=== PATIENT | female | born 1990 | race Caucasian/White ===

== ENCOUNTER 2017-05-03 18:05 | Emergency (ER) | payer MEDICAID, OTHER ==
--- NOTE | 2017-05-03 19:12 | ER NURSING DOCUMENTATION ---
Nurse's Notes [facility] Name:Marielena Paul Age:26 yrs Sex:Female :1990 Arrival Date:05/03/2017 Time:18:05 Bed3 Private MD:Vesna [facility] Diagnosis:Migraine Headache Presentation: 05/03 18:29 Presenting complaint: Patient states: migraine for the past 2 days, normal migraine la presentation for her. c/o blurry vision and nausea. out of home prescriptions- maxalt and phenergan. Transition of care: Home. 18:29 Acuity: TAVO 3 la 18:29 Method Of Arrival: Private Vehicle la Triage Assessment: 18:33 Headache History: The patient has had previous headaches and this one is similar to ok previous episodes. General: Appears comfortable, Behavior is appropriate for age, cooperative, pleasant, quiet. Pain: Complains of pain in forehead and back of neck Pain currently is 6 out of 10 on a pain scale. Quality of pain is described as throbbing, Pain began 2-3 days ago Alleviated by nothing. Aggravated by increased activity, Also complains of nausea, photophobia. EENT: No deficits noted. Neuro: Level of Consciousness is awake, alert, obeys commands, Oriented to person, place, time, event, Application Support are equal bilaterally Moves all extremities. Speech is normal, Facial symmetry appears normal, Pupils are PERRLA. Cardiovascular: No deficits noted. Respiratory: No deficits noted. GI: Abdomen is flat, non- distended Reports nausea. : No deficits noted. Derm: No deficits noted. Musculoskeletal: No deficits noted. 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 Lamictal Oral 2. Aldactone Oral 3. Metformin Oral - PMHx: PCOS; - PSHx: Tonsillectomy; - Tetanus: < 10 years. - Ebola Screening: : Patient negative for fever greater than or equal to 101.5 degrees Fahrenheit, and additional compatible Ebola Virus Disease symptoms. - Immunization history: Flu Vaccine None. - Social history: Smoking status: Patient states was never smoker of tobacco. Screenin:37 Infectious Disease Risk None. Abuse screen: Denies threats or abuse. Nutritional la screening: No deficits noted. Assessment: 18:37 See Triage Assessment done by same RN. la 18:38 Reassessment: LMP 2 weeks ago, refusing IV.. la 19:08 Reassessment: pt states she would just like prescriptions and go home. refusing PO la medications here. Vital Signs: 18:35 BP 113 / 71 RA Sitting; Pulse 86; Resp 16; Temp 98.7(O); Pulse Ox 94% ; Weight 74.84 la kg; Height 5 ft. 2 in. (157.48 cm); Pain 6/10; 19:08 BP 110 / 72 RA Sitting; Pulse 85; Resp 16; Pulse Ox 94% ; Pain 6/10; la 18:35 Body Mass Index 30.18 (74.84 kg, 157.48 cm) la Brenda Coma Score: 18:35 Eye Response: spontaneous(4). Verbal Response: oriented(5). Motor Response: obeys la commands(6). Total: 15. 19:11 Eye Response: spontaneous(4). Verbal Response: oriented(5). Motor Response: obeys la commands(6). Total: 15. ED Course: 18:07 Patient arrived in ED. ds 18:07 Christiano Carrizales MD is Private Physician. ds 18:07 [facility] is Private Physician. ds 18:09 Glen Munroe MD is Attending Physician. tl1 18:29 Winnie Bunch is Primary Nurse. la 18:31 Triage completed. la 18:37 Valuables Remains with patient Patient has correct armband on for positive la identification. Bed in low position. Call light in reach. Side rails up X 1. Door closed. Noise minimized. Lights dimmed. Pillow given. 19:03 [facility] is Referral Physician. tl1 Administered Medications: No medications were administered Outcome: 19:04 Discharge ordered by . tl1 19:09 Discharged to home ambulatory. la 19:09 Condition: good 19:09 Discharge Assessment: Patient awake, alert and oriented x 3. No cognitive and/or functional deficits noted. Patient verbalized understanding of disposition instructions. 19:09 Discharge instructions given to patient, Instructed on discharge instructions, follow up and referral plans. medication usage, Demonstrated understanding of instructions, medications, Prescriptions given X 3. 19:11 Patient left the ED. la 06 12:26 Discharge F/U Call: Unable to reach: no answer st Signatures: Twombly, Summer, RN RN st Srot, Loal, Reg Reg ds Winnie Bunch Tom, MD MD tl1
--- NOTE | 2017-05-05 19:12 | ER PHYSICIAN DOCUMENTATION ---
Physician Documentation [facility] Name:Marielena Paul Age:26 yrs Sex:Female :1990 Arrival Date:05/03/2017 Time:18:05 Bed3 Private MD:Vesna [facility] ED PhysicianShaneka Glen Disposition: 05/05 07:22 Chart complete. tl1 Disposition: 05/03/17 19:04 Discharged to Home/Self Care. Impression: Migraine Headache. - Condition is Good. - Discharge Instructions: HEADACHE, Migraine (Classical). - Prescriptions for Phenergan 25 mg Oral tablet - take 1 tablet by ORAL route every 4 hours as needed; 20 tablet. Imitrex 20 mg/Actuation Nasal - inhale 1 spray by INTRANASAL route once daily - x 1 dose; if headache returns, the dose may be repeated once after 2 hours, not to exceed a total daily dose of 2 sprays; 1 Inhaler. [place] 7.5- 325 mg Oral - take 1 tablet by ORAL route every 6 hours As needed; 12 tablet. - Medical Reconciliation form form. - Follow up: Vesna [facility]; When: 10 - 14 days; Reason: Recheck today's complaints, Continuance of care. - Problem is new. - Symptoms have improved. HPI: 05/03 18:15 This 26 yrs old Female presents to ER via Private Vehicle with complaints of tl1 Headache. 18:15 The patient complains of pain to the top of head. The patient describes the headache as tl1 aching, a pressure, throbbing, unrelenting. Onset: The symptoms/episode began/occurred gradually, yesterday. Severity of symptoms: At its worst the pain was severe, in the emergency department the pain is unchanged. She has had many prior migraines very similar to this. She ran out of her usual migraine medications, and she is here requesting phenergan and zofran so she can get to the pharmacy before they close. She would not like to stay for medications in the ED. She denies stiff neck, fever, or any focal neurological symptoms.. 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 Lamictal Oral 2. Aldactone Oral 3. Metformin Oral - PMHx: PCOS; - PSHx: Tonsillectomy; - Tetanus: < 10 years. - Ebola Screening: : Patient negative for fever greater than or equal to 101.5 degrees Fahrenheit, and additional compatible Ebola Virus Disease symptoms. - Immunization history: Flu Vaccine None. - Social history: Smoking status: Patient states was never smoker of tobacco. ROS: 19:00 Neuro: Positive for headache, Negative for altered mental status, dizziness, gait tl1 disturbance, weakness. 19:00 All other systems are negative. Exam: 19:00 Constitutional: The patient appears alert, awake, non-toxic, well developed, well tl1 hydrated, well groomed, well nourished, uncomfortable. 19:00 Head/face: Exam is negative for acute changes. 19:00 Eyes: Periorbital structures: appear normal, Pupils: equal, round, and reactive to light and accomodation, Extraocular movements: intact throughout, Conjunctiva: normal. 19:00 ENT: Exam is negative for acute changes. 19:00 Neck: ROM/movement: is normal, is supple. 19:00 Cardiovascular: Rate: normal. 19:00 Respiratory: Respirations: normal, Breath sounds: are normal. 19:00 Abdomen/GI: Inspection: 19:00 Abdomen/GI: Palpation: abdomen is soft and non-tender. 19:00 Neuro: Orientation: is normal, Mentation: is normal, Memory: is normal, Cranial nerves: grossly normal, Motor: moves all fours, Gait: is steady, at a normal pace, without difficulty, appropriate for age. 19:00 Psych: Behavior/mood is pleasant, cooperative, Affect is calm, Oriented to person, place, time, Judgement / Insight is normal. Vital Signs: 18:35 BP 113 / 71 RA Sitting; Pulse 86; Resp 16; Temp 98.7(O); Pulse Ox 94% ; Weight 74.84 la kg; Height 5 ft. 2 in. (157.48 cm); Pain 6/10; 19:08 BP 110 / 72 RA Sitting; Pulse 85; Resp 16; Pulse Ox 94% ; Pain 6/10; la 18:35 Body Mass Index 30.18 (74.84 kg, 157.48 cm) la Brenda Coma Score: 18:35 Eye Response: spontaneous(4). Verbal Response: oriented(5). Motor Response: obeys la commands(6). Total: 15. 19:11 Eye Response: spontaneous(4). Verbal Response: oriented(5). Motor Response: obeys la commands(6). Total: 15. MDM: 18:09 Patient medically screened. tl1 18:20 Data reviewed: vital signs, nurses notes, and as a result, I will discharge patient. tl1 Counseling: I had a detailed discussion with the patient and/or guardian regarding: the historical points, exam findings, and any diagnostic results supporting the discharge/admit diagnosis, the need for outpatient follow up, to return to the emergency department if symptoms worsen or persist or if there are any questions or concerns that arise at home. ED course: No change in her symptoms. Dispensed Medications: No medications were administered Signatures: Winnie Bunch Tom, MD MD tl1
== END 2017-05-03 19:12 | disposition home or self-care (01) ==
LOC: ER 18:05
DX: G43.009 Migraine without aura, not intractable, without status migrainosus (principal); Z79.899 Other long term (current) drug therapy
CPT/HCPCS: 99282